=== PATIENT | male | born 1980 | race Caucasian/White ===

== ENCOUNTER 2019-06-15 09:13 | Emergency (ER) | payer BC, SELFPAY ==
--- NOTE | 2019-06-15 09:36 | ED.URI ---
HPI - URI/Sore Throat General Chief Complaint: Upper Respiratory Infection Stated Complaint: cough aches congested head Time Seen by Provider: 06/15/19 09:37 Source: patient and RN notes reviewed History of Present Illness HPI Narrative: Patient is a 38-year-old male that presents the urgent care with complaints of head congestion, body aches, chills, sweats, sore throat, cough. Patient states that it started yesterday and he has had flu positive at work. Has been using DayQuil, NyQuil, cough drops. Denies of any known fever, nausea, vomiting. Denies shortness of breath or wheezing. No other acute complaints. No acute distress noted. Patient read the plan of care. Related Data Home Medications Medication Instructions Recorded Confirmed No Home Medications 06/15/19 06/15/19 Allergies Allergy/AdvReac Type Severity Reaction Status Date / Time No Known Allergies Allergy Verified 06/15/19 09:54 Review of Systems Review of Systems: Narrative: CONSTITUTIONAL: Reports a fever, sweats EYES: Denies visual changes, redness, or discharge. ENT: Reports of head congestion and sore throat CARDIOVASCULAR: Denies chest pain, palpitations, or edema. RESPIRATORY: Reports a productive cough without dyspnea or wheezing GASTROINTESTINAL: Denies abdominal pain, nausea, vomiting, or diarrhea. GENITOURINARY: Denies dysuria or hematuria. SKIN: Denies rash or itching. MUSCULOSKELETAL: Denies back pain, joint pain; reports of body aches NEUROLOGIC: Denies headache, numbness, or weakness. All other systems reviewed are negative, except as documented in HPI. PMFSH Comments At the time of my signature, I reviewed and agree with the nursing past medical, surgical, social, and family history. There is no relevant family history pertinent to the patient complaint. Exam Narrative: Exam Narrative: GENERAL: This is a well-nourished, well-developed patient, appears fatigued and slightly flushed HEAD: normocephalic, atraumatic. EYES: PERRL. Sclera clear/white. Vision is grossly intact. EARS: External ears normal, auditory canals clear and without drainage, TMs normal without perforation. Hearing grossly intact. NOSE: External nose normal with no obvious nasal discharge, bilateral erythemic nares with clear rhinorrhea who is once a space THROAT: Mucous membranes moist, moderate erythema noted posterior oropharynx with moderate postnasal drainage NECK: Neck supple, non-tender without lymphadenopathy, masses or thyromegaly. CARDIOVASCULAR: Regular rate and rhythm without murmurs, gallops, or rubs. RESPIRATORY: Clear to auscultation. Breath sounds equal bilaterally. No wheezes, rales, or rhonchi. SKIN: warm, intact with no suspicious lesions or rash, good texture and turgor. NEURO: awake, alert, and oriented to person, place and time. There were no obvious focal neurologic abnormalities. EXTREMITIES: No clubbing, cyanosis, or edema. Course Vital Signs Vital signs: Vital Signs Temperature 97.9 F 06/15/19 09:37 Pulse Rate 69 06/15/19 09:37 Respiratory Rate 14 06/15/19 09:37 Blood Pressure 113/65 06/15/19 09:37 Pulse Oximetry 98 06/15/19 09:37 Temperature 97.9 F 06/15/19 09:37 Pulse Rate 69 06/15/19 09:37 Respiratory Rate 14 06/15/19 09:37 Blood Pressure 113/65 06/15/19 09:37 Pulse Oximetry 98 06/15/19 09:37 Reviewed MDM - URI/Sore Throat MDM Narrative Medical decision making narrative: Reviewed lab results with the patient. He is aware that strep swab was negative. Educated him on culture and will call within 72 hours if culture is positive and antibiotics are necessary. Flu swab was also negative. However, with contact of flu symptoms may progress and you may become influenza positive. Use [id number] medication as needed for symptoms. Use Tylenol/ibuprofen as needed. Increase fluids and rest. Use humidifier at night. Follow-up with PCP within 2 to 5 days or for worsening symptoms or failure to improve.
[2019-06-15 09:37] VITALS: BP 113/65; PULSE 69; RESP 14; TEMP 36.6; O2SAT 98
== END 2019-06-15 10:08 | disposition home or self-care (01) ==
PROVIDERS: Emergency Provider Nurse Practitioner Family
DX: J06.9 Acute upper respiratory infection, unspecified (principal)
CPT/HCPCS: 87081; 87804; 87880; 99203; G0463